=== PATIENT | female | born 1980 | race Caucasian/White ===

== ENCOUNTER 2017-04-27 15:36 | Emergency (ER) | payer SELFPAY ==
[2017-04-27] MEDS ORDERED: NACL 0.9% 1000 ML 2,000 ML ONE (15:45)
[2017-04-27] MEDS ORDERED: NACL 0.9% 1000 ML 1,000 ML IV ONE ×2 (15:56→16:34)
[2017-04-27 16:22] LABS: Basophils % (Auto) 0.7 % (0.0-1.8); Eosinophils % (Auto) 1.5 % (0.0-4.3); Hematocrit 38.2 % (30.3-42.9); Hemoglobin 12.5 gm/dl (10.1-14.3); Mean Corpuscular HGB Conc 33 % (30-34); Mean Corpuscular Volume 79 fl (79-97); Red Blood Count 4.84 M/mm3 (3.65-5.03); Red Cell Distribution Width 18.9 % (13.2-15.2); White Blood Count 8.3 K/mm3 (4.5-11.0)
[2017-04-27 16:23] LABS: Mean Corpuscular Hemoglobin 26 pg (28-32)
[2017-04-27 16:24] LABS: Platelet Count 206 K/mm3 (140-440)
[2017-04-27 16:31] LABS: INR 1.06 (0.87-1.13)
[2017-04-27 16:41] LABS: Anion Gap 20 mmol/L; Blood Urea Nitrogen 7 mg/dL (7-17); Calcium 8.6 mg/dL (8.4-10.2); Carbon Dioxide 21 mmol/L (22-30); Chloride 105.2 mmol/L (98-107); Glucose 112 mg/dL (65-100); Potassium 3.2 mmol/L (3.6-5.0); Sodium 143 mmol/L (137-145)
[2017-04-27] MEDS ORDERED: K-DUR PO ONE (16:50)
--- NOTE | 2017-04-27 18:20 | Ultrasound Report ---
FINAL REPORT EXAM: US OB TRANSVAGINAL HISTORY: possible miscarrage TECHNIQUE: Ultrasound evaluation of the pelvis using TRANSVAGINAL technique PRIORS: Transabdominal pelvic ultrasound 04/27/2017 FINDINGS: The uterus measures 13.3 x 7.4 x 7.4 cm. Nonspecific ill-defined hypoechoic focus is noted in the right posterior uterine fundus with maximum dimension of 4.4 cm. The endometrium is heterogeneous and thickened to 30.4 mm. No endometrial free fluid. No evidence of intrauterine gestational sac or pole. The ovaries are visualized only with transabdominal technique. No definite adnexal abnormality. No cul-de-sac free fluid. IMPRESSION: No ultrasound evidence of intrauterine gestational although the endometrium is thickened 30.4 mm Hypoechoic focus in the right posterior uterine fundus is suggestive of 4.4 cm fibroid
--- NOTE | 2017-04-27 18:24 | Ultrasound Report ---
FINAL REPORT EXAM: US OB \T\lt; = 14 WEEKS FETUS HISTORY: possible miscarrage TECHNIQUE: Ultrasound evaluation of the pelvis using TRANSABDOMINAL technique PRIORS: Endovaginal pelvic ultrasound 04/27/2017 FINDINGS: The uterus measures 13.3 x 7.4 x 7.4 cm. No transabdominal technique evidence of mass. Normal-appearing endometrium with 18 mm thickness. No endometrial free fluid. No evidence of intrauterine gestational sac or pole. The ovaries are visualized only with transabdominal technique. Normal-appearing right ovary measures 3.4 x 1.9 x 2.3 cm and normal-appearing left ovary measures 3.9 x 2.6 x 3.1 cm. Ovarian blood flow is present bilaterally. No definite adnexal abnormality. No cul-de-sac free fluid. IMPRESSION: No sonographic evidence of acute pelvic pathology or intrauterine gestation
[2017-04-27] MEDS ORDERED: TORADOL IV ONE (19:00)
[2017-04-27] MEDS ORDERED: METHERGINE PO ONE (19:00)
--- NOTE | 2017-04-27 19:16 | Emergency Department Report ---
ED Female HPI - General Chief complaint: Vaginal Bleeding Stated complaint: VAGINAL BLEEDING Time Seen by Provider: 04/27/17 15:54 Source: patient, EMS Mode of arrival: Stretcher Limitations: No Limitations - History of Present Illness Initial comments: 36 year old female with no significant past medical history presents to the hospital complaining of heavy vaginal bleeding and suprapubic abdominal contractions subsided onset within 1 hour prior to arrival. Patient has not had a menstrual cycle in the last 3 months. She took 2 negative home test last 2 weeks ago. Today patient had some spotting that became heavy with clots. After arrival patient complained of feeling lightheaded and was diaphoretic with a near syncopal episode. No LOC reported. Suprapubic cramping 8/10 in intensity and worse with palpation. No alleviating factors. The [facility] doctors located at [place]. Patient has a history of preeclampsia with denies primary hypertension. - Related Data Previous Rx's Medication Instructions Recorded Last Taken Type HYDROcodone/APAP 5-325 [Saint Jo 1 each PO Q6HR PRN #14 tablet 04/27/17 Unknown Rx 5/325] Methylergonovine [Methergine] 0.2 mg PO TID #5 tablet 04/27/17 Unknown Rx Allergies Allergy/AdvReac Type Severity Reaction Status Date / Time No Known Allergies Allergy Unverified 04/27/17 16:58 ED Review of Systems ROS: Stated complaint: VAGINAL BLEEDING Other details as noted in HPI Comment: All other systems reviewed and negative Other: Constitutional: No fevers chills Eyes: No eye pain visual changes ENT: No ear pain or throat pain Neck: Denies pain Respiratory: Denies cough wheezing shortness of breath Cardiovascular: Denies chest pain, palpitations GI: As per HPI : Denies dysuria Musculoskeletal: Denies back pain Skin: Denies rash, lesions, erythema Neurologic: Denies headache, numbness, weakness Psychiatric: Denies suicidal ideation, hallucinations ED Past Medical Hx - Past Medical History Previous Medical History?: No - Surgical History Past Surgical History?: No - Social History Smoking Status: Never Smoker Substance Use Type: None - Medications Home Medications: Home Medications Medication Instructions Recorded Confirmed Last Taken Type HYDROcodone/APAP 5-325 [[place] 1 each PO Q6HR PRN #14 tablet 04/27/17 Unknown Rx 5/325] Methylergonovine [Methergine] 0.2 mg PO TID #5 tablet 04/27/17 Unknown Rx ED Physical Exam - General Limitations: No Limitations - Other Other exam information: General: No limitations, patient is alert in no acute distress Head exam: Atraumatic, normocephalic Eyes exam: Normal appearanc ENT: Moist mucous membrane, normal oropharynx Neck exam: Normal inspection, full range of motion, no meningismus nontender Respiratory exam: Clear to auscultation bilateral, no wheezes, rales, crackles Cardiovascular: Normal rate and rhythm Abdomen: Soft, nondistended, mild suprapubic tenderness, with normal bowel sounds, no rebound, or guarding : Positive active vaginal bleeding Extremity: Full range of motion normal inspection no deformity Back: Normal Inspection, full range of motion, no tenderness Neurologic: Alert, oriented x3, cranial nerves intact, no motor or sensory deficit Psychiatric: normal affect, normal mood Skin: Warm, dry, intact ED Course Vital Signs 04/27/17 16:00 Temperature 98.2 F Pulse Rate 81 Respiratory 16 Rate Blood Pressure 139/65 Blood Pressure 139/95 [Left] O2 Sat by Pulse 99 Oximetry - Reevaluation(s) Reevaluation #1: 04/27/17 19:19 I was called to bedside immediately upon patient's arrival to the near-syncopal episode. Her systolic blood pressure to 130s and heart rate 80 during the episode. Patient did not have complete LOC. During ED stay patient passed tissue which was sent to the lab. Bleeding has improved and minimal at this time. Pain is also improved. - Consultations Consultation #1: 04/27/17 19:[address] 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 Recommends Methergine 0.2 mg 3 times a day 6 doses and pain medication. Initial doses will be provided in the ED ED Medical Decision Making - Lab Data Result diagrams: 04/27/17 16:09 04/27/17 16:09 Lab Results 04/27/17 04/27/17 04/27/17 Range/Units 16:09 16: 16:09 WBC 8.3 (4.5-11.0) K/mm3 RBC 4.84 (3.65-5.03) M/mm3 Hgb 12.5 (10.1-14.3) gm/dl Hct 38.2 (30.3-42.9) % MCV 79 (79-97) fl MCH 26 L (28-32) pg MCHC 33 (30-34) % RDW 18.9 H (13.2-15.2) % Plt Count 206 (140-440) K/mm3 Lymph % (Auto) 31.8 (13.4-35.0) % [place] % (Auto) 7.0 (0.0-7.3) % Eos % (Auto) 1.5 (0.0-4.3) % Baso % (Auto) 0.7 (0.0-1.8) % Lymph # 2.6 (1.2-5.4) K/mm3 [place] # 0.6 (0.0-0.8) K/mm3 Eos # 0.1 (0.0-0.4) K/mm3 Baso # 0.1 (0.0-0.1) K/mm3 Seg Neutrophils % 59.0 (40.0-70.0) % Seg Neutrophils # 4.9 (1.8-7.7) K/mm3 PT 13.7 (12.2-14.9) Sec. INR 1.06 (0.87-1.13) APTT 20.0 L (24.2-36.6) Sec. Sodium 143 (137-145) mmol/L Potassium 3.2 L (3.6-5.0) mmol/L Chloride 105.2 (98-107) mmol/L Carbon Dioxide 21 L (22-30) mmol/L Anion Gap 20 mmol/L BUN 7 (7-17) mg/dL Creatinine 0.5 L (0.7-1.2) mg/dL Estimated GFR > 60 ml/min BUN/Creatinine Ratio 14.00 % Glucose 112 H (65-100) mg/dL Calcium 8.6 (8.4-10.2) mg/dL HCG, Quant (0-4) mIU/mL Blood Type Antibody Screen MARYANN Antibody Screen 04/27/17 04/27/17 Range/Units 16:09 16:09 WBC (4.5-11.0) K/mm3 RBC (3.65-5.03) M/mm3 Hgb (10.1-14.3) gm/dl Hct (30.3-42.9) % MCV (79-97) fl MCH (28-32) pg MCHC (30-34) % RDW (13.2-15.2) % Plt Count (140-440) K/mm3 Lymph % (Auto) (13.4-35.0) % [place] % (Auto) (0.0-7.3) % Eos % (Auto) (0.0-4.3) % Baso % (Auto) (0.0-1.8) % Lymph # (1.2-5.4) K/mm3 [place] # (0.0-0.8) K/mm3 Eos # (0.0-0.4) K/mm3 Baso # (0.0-0.1) K/mm3 Seg Neutrophils % (40.0-70.0) % Seg Neutrophils # (1.8-7.7) K/mm3 PT (12.2-14.9) Sec. INR (0.87-1.13) APTT (24.2-36.6) Sec. Sodium (137-145) mmol/L Potassium (3.6-5.0) mmol/L Chloride (98-107) mmol/L Carbon Dioxide (22-30) mmol/L Anion Gap mmol/L BUN (7-17) mg/dL Creatinine (0.7-1.2) mg/dL Estimated GFR ml/min BUN/Creatinine Ratio % Glucose (65-100) mg/dL Calcium (8.4-10.2) mg/dL HCG, Quant 3383 H (0-4) mIU/mL Blood Type A POSITIVE Antibody Screen TNR MARYANN Antibody Screen Negative - Radiology Data Radiology results: report reviewed Transvaginal/OB ultrasound: No IUP/sac. Endometrium is thickened to 30.4 mm. Probable uterine fibroid 4.4 cm. - Medical Decision Making Patient discharged home to follow up with her [facility]. Methergine 0.2 mg 3 times a day 2 days will be prescribed as recommended by [facility]. Patient be encouraged to follow-up with her own [facility]. Blood type A positive therefore presents to require RhoGAM - Differential Diagnosis threatened , ectopic, miscarriage, menorrhagia, anemia Critical Care Time: No Critical care attestation.: If time is entered above; I have spent that time in minutes in the direct care of this critically ill patient, excluding procedure time. ED Disposition Clinical Impression: Miscarriage, Uterine fibroid, Elevated blood pressure reading, Hypokalemia Disposition: DC-01 TO HOME OR SELFCARE Is pt being admited?: No Does the pt Need Aspirin: No Condition: Stable Instructions: Spontaneous Miscarriage (ED), Uterine Fibroids (ED), How to Take a Blood Pressure (ED), Hypokalemia (ED) Additional Instructions: At the time there are no signs of on the ultrasound and it appears that you have had a complete miscarriage. Take the prescribed methargen to help to expel any residual tissue. Saint Jo has been prescribed in case you have additional pain or cramping. You have been provided a copy of the lab work and ultrasound to take to your paster [facility] doctor for follow-up. Your blood pressure was mildly elevated in the ED so continued to monitor your blood pressure at home as discussed. Follow up with your primary care doctor for further evaluation. Return if symptoms worsen. Prescriptions: HYDROcodone/APAP 5-325 [[place] 5/325] 1 each PO Q6HR PRN #14 tablet PRN Reason: Pain Methylergonovine [Methergine] 0.2 mg PO TID #5 tablet Referrals: your, [facility] [Other] - 2-3 Days PRIMARY CARE, [Primary Care Provider] - 2-3 Days Forms: Work/School Release Form(ED) Time of Disposition: 19:35
[2017-04-27 19:28] VITALS: BP 142/92
== END 2017-04-27 20:00 | disposition home or self-care (01) ==
LOC: ED 15:36
DX: O20.0 Threatened abortion (principal); D25.9 Leiomyoma of uterus, unspecified; E87.6 Hypokalemia; R03.0 Elevated blood-pressure reading, without diagnosis of hypertension
CPT/HCPCS: 36415; 76801; 76817; 80048; 84702; 85025; 85610; 85730; 86850; 86900; 86901; 88305; 96361; 96374; 99284; J1885; J7030